=== PATIENT | male | born 1970 | race Caucasian/White ===

== ENCOUNTER 2018-02-12 06:16 | Day surgery (SDC) | payer OTHER ==
[2018-02-12] MEDS ORDERED: ALEVE220 MG PO (11:02)
[2018-02-12] MEDS ORDERED: PERCOCET 5-3251 EACH PO (11:02)
[2018-02-12] MEDS ORDERED: DUI500 PO (11:02)
== END 2018-02-12 14:45 | disposition home or self-care (01) ==
LOC: CIR.AMB 06:16
DX: S42.022A Displaced fracture of shaft of left clavicle, initial encounter for closed fracture (principal); S40.012A Contusion of left shoulder, initial encounter

== ENCOUNTER 2018-02-19 15:52 | Emergency (ER) | payer OTHER ==
[~2018-02-19] VITALS: Ht 175.3 cm; Wt 79.4 kg
[~2018-02-19 15:52] MED LIST: ALEVE220 MG PO; DUI500 PO; PERCOCET 5-3251 EACH PO
[2018-02-19] MEDS ORDERED: LOSARTAN POTASS25 MG (16:26)
[2018-02-19] MEDS ORDERED: NORVASC2.5 M1 (16:26)
== END 2018-02-19 20:41 | disposition home or self-care (01) ==
LOC: ER 15:52
DX: S42.022D Displaced fracture of shaft of left clavicle, subsequent encounter for fracture with routine healing (principal); L53.8 Other specified erythematous conditions; I10 Essential (primary) hypertension; V89.2XXD Person injured in unspecified motor-vehicle accident, traffic, subsequent encounter